=== PATIENT | female | born 1945 ===

== ENCOUNTER 2018-06-25 10:02 | Outpatient (CLI) | payer OTHER | END 2018-06-25 10:03 | disposition home or self-care (01) | LOC: C.USIC 10:02 | DX: N83.202 Unspecified ovarian cyst, left side (principal) ==

== ENCOUNTER 2018-07-14 09:35 | Outpatient (CLI) | payer OTHER | END 2018-07-14 09:36 | disposition home or self-care (01) | LOC: C.USIC 09:35 ==

== ENCOUNTER 2018-07-21 08:06 | Outpatient (CLI) | payer OTHER | END 2018-07-21 08:07 | disposition home or self-care (01) | LOC: C.CTH 08:06 ==